=== PATIENT | female | born 1975 | race African-American/Black ===

== ENCOUNTER 2021-10-31 07:19 | Outpatient (CLI) | payer BC ==
[2021-10-31 11:26] LABS: BHCG - Serum Negative (NEGATIVE); Pregs Control Background? CLEAR/WHITE (CLR/WHITE); Pregs Control Bar Appear? YES (CONTROL BAR)
[2021-10-31 18:14] LABS: SARS-CoV-2 PCR by NAA Not Detected (NotDetected)
== END 2021-10-31 07:20 | disposition home or self-care (01) ==
LOC: CSHLAB 07:19
PROVIDERS: ATTEND Student in an Organized Health Care Education/Training Program
DX: Z01.818 Encounter for other preprocedural examination (principal); Z20.822 Contact with and (suspected) exposure to COVID-19
CPT/HCPCS: 84703; 93005; 93010; U0003; U0005

== ENCOUNTER 2021-11-05 08:27 | Day surgery (SDC) | payer BC ==
[2021-11-01 14:21] VITALS: BMI 33.8
[2021-11-05] MEDS ORDERED: CeleCOXIB 100 MG CAP ONE (08:32)
[2021-11-05] MEDS ORDERED: Gabapentin 300 MG CAP ONE (08:32)
[2021-11-05] MEDS ORDERED: Famotidine/PF 20 mg/2ml Vial ONE (08:33)
[2021-11-05] MEDS ORDERED: Lidocaine 1% MPF 2 ML VIAL ONE (08:33)
[2021-11-05 09:22] LABS: Hemoglobin 14.7 g/dL (12.0-15.5); Mean Corpuscular HGB CONC 34.3 g/dL (32.0-36.0); Mean Corpuscular Hemoglobin 31.4 pg (27.0-33.0); Mean Corpuscular Volume 91.7 fl (81.6-98.3); Mean Platelet Volume 10.4 fl (7.4-10.4); Platelet Count 275 10x3/uL (150-450); RBC Distribution Width 12.7 % (11.5-14.5); Red Blood Cell (RBC) Count 4.68 10x6/uL (3.90-5.03)
[2021-11-05] MEDS ORDERED: Promethazine HCl 25 MG/ML VIAL ONE (09:40)
[2021-11-05] MEDS ORDERED: PROPOFOL 0 ML ONE (09:41)
[2021-11-05] MEDS ORDERED: Lidocaine 1% PF 5 ML VIAL ONE (09:41)
[2021-11-05] MEDS ORDERED: Rocuronium Bromide 10 MG/ML (10ML VIAL) ONE (09:41)
[2021-11-05] MEDS ORDERED: SUGAMMADEX SODIUM 200 MG/2 ML VIAL ONE (09:41)
[2021-11-05] MEDS ORDERED: EPINEPHrine 1 MG/ML AMP ONE (10:03)
[2021-11-05] MEDS ORDERED: Fentanyl 250 MCG/5 ML VIAL ONE (10:04)
[2021-11-05] MEDS ORDERED: Bupivacaine PF 0.5% 30 ML VIAL ONE (10:04)
[2021-11-05] MEDS ORDERED: Ketorolac Tromethamine 30 MG/ML VIAL ONE (10:05)
[2021-11-05] MEDS ORDERED: Midazolam HCl 2 mg/2 ml Vial ONE (10:30)
[2021-11-05] MEDS ORDERED: ceFAZolin 2 GM/Dextrose 50 ML IVPB ONE (10:33)
[2021-11-05] MEDS ORDERED: Dexamethasone 4 mg/ml Vial ONE (10:38)
[2021-11-05] MEDS ORDERED: ePHEDrine Sulfate 50 MG/10 ML VIAL ONE (11:03)
[2021-11-05] MEDS ORDERED: PHENYLEPHRINE-NS 100 MCG/ML 10 ML SYRINGE ONE (11:12)
[2021-11-05] MEDS ORDERED: PROPOFOL 20 ML ONE (11:25)
[2021-11-05] MEDS ORDERED: Ondansetron PF 4 MG/2 ML Vial ONE (12:24)
[2021-11-05] MEDS ORDERED: Glycopyrrolate 0.2 MG/ML 5 ML SYRINGE ONE (12:26)
== END 2021-11-05 17:40 | disposition home or self-care (01) ==
LOC: CSHSDC 08:27
PROVIDERS: ATTEND Student in an Organized Health Care Education/Training Program
PROC: 0UT94ZZ Resection of Uterus, Percutaneous Endoscopic Approach (ICD-10-PCS; principal; 2021-11-05)
PROC: 0UT74ZZ Resection of Bilateral Fallopian Tubes, Percutaneous Endoscopic Approach (ICD-10-PCS; principal; 2021-11-05)
DX: D25.9 Leiomyoma of uterus, unspecified (principal); N72 Inflammatory disease of cervix uteri; N85.8 Other specified noninflammatory disorders of uterus; K66.0 Peritoneal adhesions (postprocedural) (postinfection); I10 Essential (primary) hypertension; E78.00 Pure hypercholesterolemia, unspecified; Z79.899 Other long term (current) drug therapy; Z98.51 Tubal ligation status
CPT/HCPCS: 36415; 85027; 86850; 86900; 86901; 88307; J0171; J0690; J1100; J1885; J2250; J2405; J2550; J2704; J3010; S0020; S0028